=== PATIENT | male | born 2000 | race Caucasian/White ===

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

== ENCOUNTER 2019-05-06 11:01 | Inpatient (IN) | payer MEDICAID ==
[2019-05-06] VITALS (8 sets, daily range): BP systolic 125–156
[~2019-05-06] VITALS: Ht 182.9 cm; Wt 103.9 kg
[2019-05-06] MEDS ORDERED: NACL 0.9% 1,000 ML IV ONE ×3 (11:32→15:00)
[2019-05-06 12:15] LABS: BASOPHILS # (AUTO) 0.1 K/uL (0.0-0.2); BASOPHILS % (AUTO) 0.3 % (0.0-2.0); HEMATOCRIT 58.2 % (36-54); HEMOGLOBIN 19.2 g/dL (14.0-18.0); LYMPHOCYTES # (AUTO) 1.4 K/uL (1.0-5.5); LYMPHOCYTES % (AUTO) 8.4 % (20.5-51.5); MEAN CORPUSCULAR HEMOGLOBIN 27 pg (27-31); MEAN CORPUSCULAR HGB CONC 33 % (32-36); MEAN CORPUSCULAR VOLUME 81 fL (79.0-98.0); MONOCYTES # (AUTO) 0.8 K/uL (0.0-1.0); MONOCYTES % (AUTO) 4.9 % (1.7-9.3); NEUTROPHILS # (AUTO) 14.5 K/uL (1.8-7.7); NEUTROPHILS % (AUTO) 86.4 % (40.0-70.0); PLATELET COUNT (AUTO) 351 K/uL (130-430); RED BLOOD CELL COUNT(AUTO) 7.15 MIL/uL (4.2-6.2); RED CELL DISTRIBUTION WIDTH 13.7 % (9.0-15.0); WHITE BLOOD COUNT (AUTO) 16.8 K/uL (4.5-11.0)
[2019-05-06 12:27] LABS: ALANINE AMINOTRANSFERASE 139 U/L (12-78); ALBUMIN 4.8 g/dL (3.4-4.8); ANION GAP 31 (5-15); ASPARTATE AMINOTRANSFERASE 31 U/L (10-37); CALCIUM 10.1 mg/dL (8.4-11.0); CHLORIDE 94 mmol/L (98-107); CREATININE 1.54 mg/dL (0.55-1.30); POTASSIUM 4.9 mmol/L (3.5-5.1); SODIUM SERUM 135 mmol/L (136-145); TOTAL BILIRUBIN 0.6 mg/dL (0.0-1.0); UREA NITROGEN, BLOOD 22 mg/dL (8-21)
[2019-05-06] MEDS ORDERED: INSULIN REGULAR, HUMAN 10 UNITS/0.1 ML INJ IVP ONE ×2 (12:30→15:00)
[2019-05-06 12:31] LABS: GFR AFRICAN AMERICAN 75 mL/min (>90)
[2019-05-06 12:32] LABS: GLUCOSE 585 mg/dL (70-99)
[2019-05-06 12:43] LABS: ACETONE, SERUM SMALL (NEGATIVE)
[2019-05-06] MEDS ORDERED: SODIUM BICARBONATE 8.4% JECT 50 MEQ/50 ML SYRINGE IVP ONE (12:45)
[2019-05-06] MEDS ORDERED: ONDANSETRON HCL 4 MG/2 ML VIAL IVP ONE (12:45)
[2019-05-06 12:58] LABS: BILIRUBIN,URINE 1+ (NEGATIVE); BLOOD, URINE 2+ (NEGATIVE); CLARITY/URINE CLEAR (CLEAR); COLOR,URINE YELLOW (YELLOW); GLUCOSE,URINE 3+ (NEGATIVE); KETONES,URINE 3+ (NEGATIVE); LEUKOCYTE ESTERASE ,URINE NEGATIVE (NEGATIVE); NITRITE, URINE NEGATIVE (NEGATIVE); PH,URINE 5.5 (5.0-8.0); PROTEIN URINE 2+ (NEGATIVE); UROBILINOGEN,URINE 0.2 (0.2-1.0)
[2019-05-06 13:20] LABS: BACTERIA,URINE FEW /HPF (None Seen); WBC,URINE 0-3 /HPF (0-3)
[2019-05-06] MEDS ORDERED: NS 500 ML IV SCH (17:50)
[2019-05-06] MEDS ORDERED: cefTRIAXone 1 GM in D5W 50 ML IV SCH (18:00)
[2019-05-06] MEDS ORDERED: DEXTROSE 50% JECT 50 ML DISP.SYRIN IVP PRN (18:00)
[2019-05-06 18:35] LABS: BASOPHILS # (AUTO) 0.1 K/uL (0.0-0.2); BASOPHILS % (AUTO) 0.5 % (0.0-2.0); HEMOGLOBIN 16.7 g/dL (14.0-18.0); LYMPHOCYTES # (AUTO) 2.3 K/uL (1.0-5.5); LYMPHOCYTES % (AUTO) 12.6 % (20.5-51.5); MEAN CORPUSCULAR HEMOGLOBIN 27 pg (27-31); MEAN CORPUSCULAR HGB CONC 33 % (32-36); MEAN CORPUSCULAR VOLUME 80 fL (79.0-98.0); MONOCYTES # (AUTO) 1.3 K/uL (0.0-1.0); MONOCYTES % (AUTO) 7.2 % (1.7-9.3); NEUTROPHILS # (AUTO) 14.3 K/uL (1.8-7.7); NEUTROPHILS % (AUTO) 79.7 % (40.0-70.0); PLATELET COUNT (AUTO) 301 K/uL (130-430); RED BLOOD CELL COUNT(AUTO) 6.22 MIL/uL (4.2-6.2); RED CELL DISTRIBUTION WIDTH 13.8 % (9.0-15.0)
[2019-05-06] MEDS: NACL 0.9% 1,000 ML IV SCH ×2 (18:41→22:57)
[2019-05-06 18:47] LABS: ALANINE AMINOTRANSFERASE 104 U/L (12-78); ALBUMIN 4.1 g/dL (3.4-4.8); ANION GAP 25 (5-15); ASPARTATE AMINOTRANSFERASE 30 U/L (10-37); CALCIUM 8.8 mg/dL (8.4-11.0); CHLORIDE 106 mmol/L (98-107); CREATININE 1.23 mg/dL (0.55-1.30); GLUCOSE 317 mg/dL (70-99); PHOSPHORUS 4.3 mg/dL (2.7-4.5); POTASSIUM 4.4 mmol/L (3.5-5.1); SODIUM SERUM 143 mmol/L (136-145); TOTAL BILIRUBIN 0.6 mg/dL (0.0-1.0); UREA NITROGEN, BLOOD 17 mg/dL (8-21)
[2019-05-06 18:49] LABS: GFR AFRICAN AMERICAN 97 mL/min (>90)
[2019-05-06 19:10] LABS: ACETONE, SERUM SMALL (NEGATIVE)
[2019-05-06] MEDS: INSULIN REGULAR, HUMAN 100 UNITS in NS 99 ML IV PRN ×2 (19:13)
[2019-05-06 22:18] LABS: AMYLASE 163 U/L (0-100); ANION GAP 22 (5-15); CALCIUM 8.4 mg/dL (8.4-11.0); CHLORIDE 106 mmol/L (98-107); GLUCOSE 313 mg/dL (70-99); LIPASE 1606 U/L (73-393); POTASSIUM 4.2 mmol/L (3.5-5.1); SODIUM SERUM 140 mmol/L (136-145); UREA NITROGEN, BLOOD 18 mg/dL (8-21)
[2019-05-06 22:20] LABS: GFR AFRICAN AMERICAN 100 mL/min (>90)
[2019-05-07] VITALS (24 sets, daily range): BP systolic 114–163
[2019-05-07 02:15] LABS: CALCIUM 8.4 mg/dL (8.4-11.0); CREATININE 1.2 mg/dL (0.55-1.30); POTASSIUM 3.8 mmol/L (3.5-5.1)
[2019-05-07] MEDS: NACL 0.9% 1,000 ML IV SCH ×5 (03:55→20:32)
[2019-05-07 06:23] LABS: ALBUMIN 3.1 g/dL (3.4-4.8); BILIRUBIN,DIRECT 0.1 mg/dL (0.0-0.3); CALCIUM 8.2 mg/dL (8.4-11.0); CREATININE 1.23 mg/dL (0.55-1.30); POTASSIUM 3.7 mmol/L (3.5-5.1); TOTAL BILIRUBIN 0.7 mg/dL (0.0-1.0)
[2019-05-07] MEDS: INSULIN REGULAR, HUMAN 100 UNITS in NS 99 ML IV PRN ×16 (08:14→18:51)
[2019-05-07] MEDS: PIPERACILLIN/TAZO 3.375/DEX-IS 50 ML IV SCH ×4 (09:20→23:25)
[2019-05-07] MEDS ORDERED: SODIUM CHLORIDE 0.65% NASAL SPRAY NS PRN (10:15)
[2019-05-07] MEDS ORDERED: [UNRECOGNIZED DRUG - REMARK] MM PRN (11:45)
[2019-05-07 12:34] LABS: ALBUMIN 3.1 g/dL (3.4-4.8); CALCIUM 8.4 mg/dL (8.4-11.0); CREATININE 1.22 mg/dL (0.55-1.30); POTASSIUM 3.6 mmol/L (3.5-5.1); TOTAL BILIRUBIN 0.9 mg/dL (0.0-1.0)
[2019-05-07] MEDS ORDERED: POTASSIUM CHLORIDE 40 MEQ in NS 250 ML IV ONE (17:00)
[2019-05-07 22:03] LABS: CALCIUM 8.8 mg/dL (8.4-11.0); CREATININE 1.01 mg/dL (0.55-1.30); POTASSIUM 3.7 mmol/L (3.5-5.1)
[2019-05-08] VITALS (17 sets, daily range): BP systolic 133–167
[2019-05-08] MEDS: NACL 0.9% 1,000 ML IV SCH ×4 (01:12→18:30)
[2019-05-08] MEDS: PIPERACILLIN/TAZO 3.375/DEX-IS 50 ML IV SCH ×3 (05:45→17:11)
[2019-05-08 06:48] LABS: BASOPHILS # (AUTO) 0.1 K/uL (0.0-0.2); BASOPHILS % (AUTO) 0.8 % (0.0-2.0); EOSINOPHILS # (AUTO) 0.3 K/uL (0.0-0.4); EOSINOPHILS % (AUTO) 3.9 % (0.0-4.0); HEMATOCRIT 42.2 % (36-54); LYMPHOCYTES # (AUTO) 2.3 K/uL (1.0-5.5); LYMPHOCYTES % (AUTO) 27.6 % (20.5-51.5); MEAN CORPUSCULAR HEMOGLOBIN 27 pg (27-31); MEAN CORPUSCULAR HGB CONC 33 % (32-36); MEAN CORPUSCULAR VOLUME 80 fL (79.0-98.0); MONOCYTES # (AUTO) 0.5 K/uL (0.0-1.0); MONOCYTES % (AUTO) 6.3 % (1.7-9.3); NEUTROPHILS # (AUTO) 5.2 K/uL (1.8-7.7); NEUTROPHILS % (AUTO) 61.4 % (40.0-70.0); PLATELET COUNT (AUTO) 201 K/uL (130-430); RED BLOOD CELL COUNT(AUTO) 5.26 MIL/uL (4.2-6.2); RED CELL DISTRIBUTION WIDTH 13.7 % (9.0-15.0); WHITE BLOOD COUNT (AUTO) 8.4 K/uL (4.5-11.0)
[2019-05-08 07:12] LABS: ALBUMIN 3.2 g/dL (3.4-4.8); CALCIUM 8.7 mg/dL (8.4-11.0); CREATININE 1.03 mg/dL (0.55-1.30); POTASSIUM 3.6 mmol/L (3.5-5.1); TOTAL BILIRUBIN 0.9 mg/dL (0.0-1.0)
[2019-05-08] MEDS ORDERED: DEXTROSE 50% JECT 50 ML DISP.SYRIN IVP PRN (08:30)
[2019-05-08] MEDS: INSULIN LISPRO SLIDING SCALE 100 UNITS/ML VIAL (humaLOG) SUBCUT PRN ×3 (11:21→21:17)
[2019-05-08] MEDS ORDERED: POTASSIUM CHLORIDE 20 MEQ TAB.PRT.SR PO ONE (11:45)
[2019-05-08] MEDS ORDERED: FLU VACC QS2019-20 36MOS UP/PF 60 MCG/0.5 ML SYRINGE I.M. PRN (21:00)
[2019-05-08] MEDS ORDERED: INSULIN GLARGINE 100 UNITS/ML 10 ML VIAL SUBCUT SCH (21:00)
[2019-05-09] MEDS: PIPERACILLIN/TAZO 3.375/DEX-IS 50 ML IV SCH ×5 (00:14→23:49)
[2019-05-09] MEDS: NACL 0.9% 1,000 ML IV SCH ×3 (00:17→23:50)
[2019-05-09 00:20] VITALS: BP_SYST 142
[2019-05-09] MEDS: INSULIN LISPRO SLIDING SCALE 100 UNITS/ML VIAL (humaLOG) SUBCUT PRN ×4 (06:08→20:43)
[2019-05-09 07:10] LABS: BASOPHILS # (AUTO) 0.1 K/uL (0.0-0.2); BASOPHILS % (AUTO) 0.8 % (0.0-2.0); EOSINOPHILS # (AUTO) 0.3 K/uL (0.0-0.4); HEMATOCRIT 45.1 % (36-54); LYMPHOCYTES # (AUTO) 1.9 K/uL (1.0-5.5); LYMPHOCYTES % (AUTO) 28.8 % (20.5-51.5); MEAN CORPUSCULAR HEMOGLOBIN 27 pg (27-31); MEAN CORPUSCULAR HGB CONC 33 % (32-36); MEAN CORPUSCULAR VOLUME 81 fL (79.0-98.0); MONOCYTES # (AUTO) 0.5 K/uL (0.0-1.0); MONOCYTES % (AUTO) 8.2 % (1.7-9.3); NEUTROPHILS # (AUTO) 3.9 K/uL (1.8-7.7); NEUTROPHILS % (AUTO) 58.2 % (40.0-70.0); PLATELET COUNT (AUTO) 210 K/uL (130-430); RED BLOOD CELL COUNT(AUTO) 5.61 MIL/uL (4.2-6.2); RED CELL DISTRIBUTION WIDTH 13.6 % (9.0-15.0); WHITE BLOOD COUNT (AUTO) 6.7 K/uL (4.5-11.0)
[2019-05-09 08:00] VITALS: BP_SYST 149
[2019-05-09 08:55] LABS: CALCIUM 8.9 mg/dL (8.4-11.0); CREATININE 0.97 mg/dL (0.55-1.30); POTASSIUM 3.4 mmol/L (3.5-5.1)
[2019-05-09 12:00] VITALS: BP_SYST 127
[2019-05-09] MEDS: POTASSIUM CHLORIDE 20 MEQ TAB.PRT.SR PO PRN (14:25)
[2019-05-09 16:00] VITALS: BP_SYST 130
[2019-05-10 00:28] VITALS: BP_SYST 127
[2019-05-10] MEDS: PIPERACILLIN/TAZO 3.375/DEX-IS 50 ML IV SCH (06:12)
[2019-05-10] MEDS: INSULIN LISPRO SLIDING SCALE 100 UNITS/ML VIAL (humaLOG) SUBCUT PRN (06:16)
[2019-05-10 07:57] LABS: BASOPHILS # (AUTO) 0.1 K/uL (0.0-0.2); BASOPHILS % (AUTO) 1.1 % (0.0-2.0); EOSINOPHILS # (AUTO) 0.3 K/uL (0.0-0.4); EOSINOPHILS % (AUTO) 4.7 % (0.0-4.0); HEMATOCRIT 43.4 % (36-54); HEMOGLOBIN 14.6 g/dL (14.0-18.0); LYMPHOCYTES # (AUTO) 1.6 K/uL (1.0-5.5); LYMPHOCYTES % (AUTO) 25.8 % (20.5-51.5); MEAN CORPUSCULAR HEMOGLOBIN 27 pg (27-31); MEAN CORPUSCULAR HGB CONC 34 % (32-36); MEAN CORPUSCULAR VOLUME 79 fL (79.0-98.0); MONOCYTES # (AUTO) 0.5 K/uL (0.0-1.0); MONOCYTES % (AUTO) 8.3 % (1.7-9.3); NEUTROPHILS # (AUTO) 3.7 K/uL (1.8-7.7); NEUTROPHILS % (AUTO) 60.1 % (40.0-70.0); PLATELET COUNT (AUTO) 202 K/uL (130-430); RED BLOOD CELL COUNT(AUTO) 5.48 MIL/uL (4.2-6.2); RED CELL DISTRIBUTION WIDTH 13.7 % (9.0-15.0); WHITE BLOOD COUNT (AUTO) 6.2 K/uL (4.5-11.0)
[2019-05-10 08:00] VITALS: BP_SYST 139
[2019-05-10 08:32] LABS: CALCIUM 8.5 mg/dL (8.4-11.0); CREATININE 0.85 mg/dL (0.55-1.30); POTASSIUM 3.3 mmol/L (3.5-5.1)
[2019-05-10] MEDS ORDERED: LIP20 PO (09:33)
[2019-05-10] MEDS ORDERED: GLYB5TAB7 PO (09:33)
[2019-05-10] MEDS ORDERED: GLU850 PO (09:33)
[2019-05-10] MEDS ORDERED: LISI2.5T48 PO (09:33)
[2019-05-10] MEDS: POTASSIUM CHLORIDE 20 MEQ TAB.PRT.SR PO PRN (09:41)
[2019-05-10 11:06] VITALS: BP_SYST 140
== END 2019-05-10 11:45 | disposition home or self-care (01) | DRG 282 ==
LOC: SED 11:01 → SIC 16:18 → SMU 05-08 16:10
PROVIDERS: ADMIT General Practice; ATTEND General Practice
DX: K85.90 Acute pancreatitis without necrosis or infection, unspecified (principal); R65.11 Systemic inflammatory response syndrome (SIRS) of non-infectious origin with acute organ dysfunction; N17.0 Acute kidney failure with tubular necrosis; E11.10 Type 2 diabetes mellitus with ketoacidosis without coma; K76.0 Fatty (change of) liver, not elsewhere classified; E44.1 Mild protein-calorie malnutrition; N39.0 Urinary tract infection, site not specified; E66.9 Obesity, unspecified; F12.90 Cannabis use, unspecified, uncomplicated; F32.9 Major depressive disorder, single episode, unspecified; F41.9 Anxiety disorder, unspecified; F90.9 Attention-deficit hyperactivity disorder, unspecified type; R74.0 Nonspecific elevation of levels of transaminase and lactic acid dehydrogenase [LDH]; Z79.84 Long term (current) use of oral hypoglycemic drugs; Z68.31 Body mass index [BMI] 31.0-31.9, adult; Z79.899 Other long term (current) drug therapy; Z83.3 Family history of diabetes mellitus; Z88.8 Allergy status to other drugs, medicaments and biological substances
CPT/HCPCS: 36415; 36600; 71045; 76700-TC; 80048; 80053; 80076; 81000-TC; 82009-TC; 82150-TC; 82803-TC; 82962; 83036; 83605; 83690-TC; 83735-TC; 84100-TC; 84484; 85025; 85610-TC; 85730-TC; 87040-TC; 87081; 87086; 93005; 96361; 96374; 96375; 96376; 99285; J0696; J1815; J2405; J2543; J3480; J7030; J7050; J7060

== ENCOUNTER 2020-12-30 14:31 | Emergency (ER) | payer MEDICAID ==
[~2020-12-30] VITALS: Ht 182.9 cm; Wt 113.4 kg
[~2020-12-30 14:31] MED LIST: GLU850 PO; GLYB5TAB7 PO; LIP20 PO; LISI2.5T48 PO
[2020-12-30 14:52] VITALS: BP_SYST 123
[2020-12-30] MEDS ORDERED: INSULIN REGULAR, HUMAN 10 UNITS/0.1 ML INJ SUBCUT ONE (15:30)
[2020-12-30] MEDS ORDERED: GLIP10TA11 PO (15:31)
[2020-12-30] MEDS ORDERED: LISI-209 PO (15:31)
[2020-12-30] MEDS ORDERED: LIP20 PO (15:31)
[2020-12-30 16:15] LABS: BASOPHILS # (AUTO) 0.1 K/uL (0.0-0.2); BASOPHILS % (AUTO) 0.7 % (0.0-2.0); EOSINOPHILS # (AUTO) 0.1 K/uL (0.0-0.4); EOSINOPHILS % (AUTO) 0.7 % (0.0-4.0); HEMATOCRIT 47.7 % (36-54); HEMOGLOBIN 16.4 g/dL (14.0-18.0); LYMPHOCYTES # (AUTO) 1.7 K/uL (1.0-5.5); LYMPHOCYTES % (AUTO) 15.9 % (20.5-51.5); MEAN CORPUSCULAR HEMOGLOBIN 28 pg (27-31); MEAN CORPUSCULAR HGB CONC 34 % (32-36); MEAN CORPUSCULAR VOLUME 80 fL (79.0-98.0); MONOCYTES # (AUTO) 0.8 K/uL (0.0-1.0); MONOCYTES % (AUTO) 7.3 % (1.7-9.3); NEUTROPHILS # (AUTO) 8.2 K/uL (1.8-7.7); NEUTROPHILS % (AUTO) 75.4 % (40.0-70.0); PLATELET COUNT (AUTO) 282 K/uL (130-430); RED BLOOD CELL COUNT(AUTO) 5.96 MIL/uL (4.2-6.2); WHITE BLOOD COUNT (AUTO) 10.9 K/uL (4.8-10.8)
[2020-12-30 16:22] LABS: CALCIUM 10.3 mg/dL (8.4-11.0); CREATININE 0.99 mg/dL (0.55-1.30); POTASSIUM 4.1 mmol/L (3.5-5.1)
[2020-12-30 17:06] VITALS: BP_SYST 144
== END 2020-12-30 17:05 | disposition home or self-care (01) ==
LOC: SED 14:31
DX: E11.65 Type 2 diabetes mellitus with hyperglycemia (principal); Z79.84 Long term (current) use of oral hypoglycemic drugs; Z79.899 Other long term (current) drug therapy; Z88.8 Allergy status to other drugs, medicaments and biological substances
CPT/HCPCS: 36415; 80048; 82962; 85025; 96372; 99283; J1815